=== PATIENT | female | born 1975 | race Caucasian/White ===

== ENCOUNTER 2023-09-15 07:00 | Outpatient (NON) | payer MEDICARE, MEDICAID, SELFPAY | END 2023-09-15 07:01 | disposition home or self-care (01) | PROVIDERS: Visit Provider Plastic Surgery | DX: L73.2 Hidradenitis suppurativa (principal) | CPT/HCPCS: 88304 ==

== ENCOUNTER 2023-09-15 08:17 | Day surgery (SDC) | payer MEDICARE, MEDICAID, SELFPAY ==
[2023-08-29 13:26] VITALS: BMI 35.9
[2023-09-15] VITALS (8 sets, daily range): BP systolic 114–148; BP diastolic 66–96; PULSE 75–85; RESP 14–20; TEMP 36.4–36.6; O2SAT 96–100
--- NOTE | 2023-09-15 07:16 | WPDHPUPDATE1 ---
History and Physical Update Update Date/Time: 09/15/23 07:16 Patient seen and examined in pre-operative holding area. No interval change in medical history or symptoms. Patient remembers previous discussion of benefits and alternatives to procedure. Continues to desire to proceed with right axillary hidradenitis excision and complex closure. I reviewed the risks including but not limited to bleeding ,infection, asymmetry, undesireable cosmetic appearance, partial/total skin loss, no change or worsening of symptoms, recurrence, change in sensation. I discussed the possible use of assistants and their level of participation in the case. Patient stated understanding and signed the consent form wishing to proceed
--- NOTE | 2023-09-15 07:17 | W.PM.PROC2 ---
Procedure Note - Detailed Date of Procedure 09/15/23 Pre-op Diagnosis Right Axillary Hidradenitis Suppurativa Post-op Diagnosis Same Procedure Performed right axillary hidradenitis excision and closure Surgeon Max Howard MD Level Vial Inside Grinder Marsha Condon PA-C Anesthesia MAC Description of Procedure INFORMED CONSENT: The patient was seen and examined and marked in the pre-op area.? The patient signed the consent form. PROCEDURE IN DETAIL:The patient taken back to OR on the stretcher in supine position. Time out performed with anesthesia, surgeon and staff agreeing on patient's name site and surgery to be performed SCDs were placed on the lower extremities and inflated. After anesthesia administered sedation I injected {30}cc 1%lido with epi and 0.5% marcaine plain at the operative site The right axilla was prepped and draped in sterile fashion. I proceeded with making an incision around the larger area of affected skin, induration and draining sinus through skin and dermis with a 15 blade scalpel. I then proceeded with dissection and excision of all clearly affected subq tissue with the bovie cautery. No further tracts were identified from this primary area of hidradenitis. I trimmed excess skin for dog ear removal and to improve closure and irrigated with normal saline. Hemostasis was obtained with bovie cautery. I closed with 3-0 vicryl for deep and dermis and 4-0 chromic for skin. The length of closure was 6cm I next took my attention to the two smaller satellite areas of induration and affected skin and made elliptical incisions around them with 15 blade scalpel and then bovie was used to dissect and excise and affected tissue from the subq area. I irrigated with normal saline and closed with 3-0 vicryl and 4-0 chromic A dressing of xeroform, 4x4, ml, pressure dressing was applied. The patient was then awaken from anesthesia and transferred to the recovery room in stable condition.? Complications - none EBL- 5cc Disposition - home in stable conditions Marsha Condon PA-C was essential for positioning, retraction, closure and dressing placement [facility] Billing Surgery - Charge Forward: Surgery Billing ([id number] for marsha)
--- NOTE | 2023-09-15 09:52 | P.PNAN_ITS ---
Anes - Initial Pre Proc Eval Procedure: Operation Date: 09/15/23 10:30 Proposed Procedures p Excision Right Axillary Hidradenitis and Complex Closure - Max Howard MD Date/Time: 09/15/23 09:52 Surgeon: Max Howard MD Pre Op Diagnosis: Right Axillary Hidradenitis Suppurativa Patient Data Age: 48 Gender: F Height: 1.63 m Weight: 94.5 kg Last Vital Signs Temp 36.6 C 09/15/23 09:35 Pulse 85 09/15/23 09:35 Resp 14 09/15/23 09:35 BP 148/96 H 09/15/23 09:35 Pulse Ox 98 09/15/23 09:35 O2 Del Method Room Air 09/15/23 09:35 Allergies Allergy/AdvReac Type Severity Reaction Status Date / Time No Known Allergies Allergy Verified 09/15/23 09:24 Home Medications Medication Instructions Recorded Confirmed Type atorvastatin 80 mg tablet 80 mg PO DAILY 08/29/23 09/15/23 History brexpiprazole 1 mg tablet (Rexulti) 1 mg PO DAILY 08/29/23 09/15/23 History ezetimibe 10 mg tablet 10 mg PO DAILY 08/29/23 09/15/23 History fluoxetine 20 mg capsule 20 mg PO DAILY 08/29/23 09/15/23 History insulin lispro 100 unit/mL See Rx Instructions .Route .COMPLEX 08/29/23 09/15/23 History subcutaneous solution (Humalog U-100 Insulin) lisinopril 5 mg tablet 5 mg PO DAILY 08/29/23 09/15/23 History tramadol 50 mg tablet 50 mg PO Q6H PRN pain #8 tabs 09/15/23 Rx Patient hx anesthesia problems: none Family hx anesthesia problems: none Results Review: All pre-operative results and documents have been reviewed as part of the pre- operative evaluation. [facility] Past Medical History Medical History (Updated 09/15/23 @ 09:53 by Oscar Amador MD) Diabetes HTN (hypertension) Obesity Social History Social History Smoking status: Former smoker Tobacco type: cigarettes Alcohol intake: current Substance use: never Substance use type: does not use Do You Feel Safe in your Home?: Yes Lack of Transportation: YES Lack of Food: Never True Current Housing: I Have Housing Concerned About Future Housing: No Difficulty Paying Gas/Electric Bills: No Difficulty Paying for Meds: No Currently Unemployed: No Education: High School Diploma/GED Difficulty w/ Childcare or Family Care: No Living arrangements: with family Spiritual care concerns: No Anes - Eval Final PreProcedure Day of Procedure 09/15/23 09:52 Patient weight: obese Heart: regular rate and rhythm Lungs: clear to auscultation Airway: Mallampati scale class II Neurological: alert and oriented Last oral intake: >/= 8 hours ASA classification: III Emergent: no Anesthetic plan: proceed Anesthesia type and monitoring: general GIVS and standard monitoring Results Review: All pre-operative results and documents have been reviewed as part of the pre- operative evaluation. Informed Consent: The patient's anesthetic plan and its attendant risks and benefits were discussed with the patient/family/POA. Questions were solicited and answers provided to the satisfaction of the patient/family/POA.
[2023-09-15 09:54] LABS: Glucose Point of Care 120 mg/dl (65-105)
[2023-09-15] MEDS: LACTATED RINGERS 1,000 ML 30 ML IV CONT (09:54)
[2023-09-15] MEDS: ceFAZolin SODIUM 2 GM/20 ML SW SYRINGE IV PUSH (10:48)
[2023-09-15] MEDS: LIDO 1%/EPINEPHRINE 1:100,000 50 ML VIAL 20 ML INFILTRATE (11:34)
--- NOTE | 2023-09-15 12:18 | WPDANESPN ---
Anes - Prog Note Post-Op Date/Time: 09/15/23 12:18 Cardiovascular status: normal Respiratory status: normal Airway patency: baseline Mental status: baseline Post-Op hydration status: normal Vital Signs: Last Vital Signs Temp 36.4 C L 09/15/23 11:46 Pulse 79 09/15/23 12:16 Resp 17 09/15/23 12:16 BP 140/74 09/15/23 12:16 Pulse Ox 96 09/15/23 12:16 O2 Del Method Room Air 09/15/23 12:16 O2 Flow Rate 8 09/15/23 11:56 Pain Score (VAS): 0/10 I/O: Intake & Output 09/14/23 09/15/23 09/15/23 23:59 07:59 15:59 Intake Total 900 Balance 900 09/15/23 09:49 POC Capillary Glucose 120 H Patient Feedback: Patient satisfied with anesthetic care.
== END 2023-09-15 12:43 | disposition home or self-care (01) ==
PROVIDERS: Visit Provider Plastic Surgery
PROC: (CPT 11450; principal; 2023-09-15 10:30)
DX: L73.2 Hidradenitis suppurativa (principal)
CPT/HCPCS: 11450